=== PATIENT | female | born 1945 | race Caucasian/White ===

== ENCOUNTER 2022-02-26 08:42 | Day surgery (SDC) | payer MEDICARE ==
[2022-02-26] VITALS (13 sets, daily range): BP systolic 102–167; BP diastolic 58–89
[~2022-02-26] VITALS: Ht 160 cm; Wt 57.5 kg
[2022-02-26] MEDS ORDERED: normal saline 1,000 ML IV SCH (09:10)
[2022-02-26] MEDS ORDERED: LORazepam 0.5 MG tablet PO PRN (09:10)
[2022-02-26] MEDS ORDERED: diphenhydrAMINE 25mg capsule PO PRN (09:10)
[2022-02-26] MEDS ORDERED: METF-1203 PO (09:25)
[2022-02-26] MEDS ORDERED: [UNRECOGNIZED DRUG - OTHER] (09:27)
[2022-02-26] MEDS ORDERED: CHOL20004 PO (09:27)
[2022-02-26] MEDS ORDERED: LIDOcaine/PRILOcaine 5gm cream TP ONE (09:30)
[2022-02-26] MEDS ORDERED: nitroGLYCERIN-Tridil 50MG/D5W 250 ML IV ONE (11:41)
[2022-02-26] MEDS ORDERED: midazolam 1 mg/ML 2ml injection ONE (11:41)
[2022-02-26] MEDS ORDERED: verapamil 2.5 mg/ml inj IV ONE (11:41)
[2022-02-26] MEDS ORDERED: heparin 1,000unit/ml 10ml vial 10 ML ONE (11:41)
[2022-02-26] MEDS ORDERED: iohexol 300mg/ml 100ml inj. ONE ×3 (11:41→13:25)
[2022-02-26] MEDS ORDERED: fentaNYL/PF 50MCG/1 ML 2ML syringe ONE (11:41)
[2022-02-26] MEDS ORDERED: LIDOcaine 1% 30ml preserv. free vial ONE (12:05)
[2022-02-26] MEDS ORDERED: heparin 25,000 UNIT/250ml bag 250 ML IV ONE (12:41)
[2022-02-26] MEDS ORDERED: heparin 1,000 UNITS/NS 500ml 500 ML ONE (12:47)
[2022-02-26] MEDS ORDERED: iohexol 350 MG/ML 50ML vial IV ONE (13:45)
[2022-02-26] MEDS ORDERED: clopidogrel 300mg tablet ONE (13:46)
--- NOTE | 2022-02-26 16:20 | NUR ---
Son, Hector has picked up new RX for Plavix. Pt has new RX in hand and understands administration instructions.
--- NOTE | 2022-02-26 18:43 | NUR ---
Report to Radha GUPTA. (R) wrist site remains stable. No s/s hematoma.
--- NOTE | 2022-02-26 18:45 | NUR ---
Received report from Tameka GUPTA for transfer of care. Right radial wrist site stable with vasc band in place. No signs of bleeding or hematoma.
== END 2022-02-26 20:00 | disposition home or self-care (01) ==
LOC: EDBD 08:42 → SSTAY O 08:42
PROVIDERS: ATTEND Internal Medicine Cardiovascular Disease
DX: R94.39 Abnormal result of other cardiovascular function study (principal); R07.89 Other chest pain; I25.10 Atherosclerotic heart disease of native coronary artery without angina pectoris; E11.9 Type 2 diabetes mellitus without complications; I10 Essential (primary) hypertension; E78.5 Hyperlipidemia, unspecified; Z79.84 Long term (current) use of oral hypoglycemic drugs; Z79.899 Other long term (current) drug therapy; Z88.8 Allergy status to other drugs, medicaments and biological substances; Z91.040 Latex allergy status; Z83.6 Family history of other diseases of the respiratory system; Z83.3 Family history of diabetes mellitus
CPT/HCPCS: 76937; 82948; 85347; 93005; 93458; 99152; 99153; C1725; C1751; C1769; C1874; C1894; C9600; J1644; J2250; J3010; J3490; J7030; Q0163; Q9967; A4620; A5120; A6258